=== PATIENT | male | born 1955 ===

== ENCOUNTER 2022-12-25 08:57 | Outpatient (CLI) | payer MEDICARE, OTHER ==
--- NOTE | 2022-12-25 17:47 | XRAY Report ---
PROCEDURE: Knee 3 View LT INDICATIONS: CONTUSION OF LEFT KNEE TECHNIQUE: 3 views of the left knee(s) were acquired. COMPARISON: None. FINDINGS: Bones: No fractures or dislocations. No suspicious bony lesions.. Tricompartmental joint space narr owing with associated osteophytosis. Soft tissues: No knee joint effusion. No suspicious soft tissue calcifications or masses. IMPRESSION: No acute bony abnormality. Mild to moderate tricompartmental osteoarthritis. Kellgren-Chriss scale of osteoarthritis: 2. Reviewed by: Yordy Maria on 12/25/2022 5:46 PM PDT Approved by: Yordy Maria on 12/25/2022 5:46 PM PDT Station ID: [id number]
== END 2022-12-25 23:59 | disposition home or self-care (01) ==
LOC: DI.S 08:57
PROVIDERS: ATTEND Emergency Medicine
DX: S80.02XA Contusion of left knee, initial encounter (principal); M17.12 Unilateral primary osteoarthritis, left knee

== ENCOUNTER 2023-01-12 10:22 | Outpatient (CLI) | payer MEDICARE, OTHER ==
[2023-01-12 10:48] LABS: CREATININE 1.1 mg/dL (0.6-1.3)
== END 2023-01-12 10:23 | disposition home or self-care (01) ==
LOC: LAB 10:22
PROVIDERS: ATTEND Family Medicine
DX: I10 Essential (primary) hypertension (principal); N17.9 Acute kidney failure, unspecified
CPT/HCPCS: 36415; 80048